=== PATIENT | female | born 1990 | race Caucasian/White ===

== ENCOUNTER 2018-11-13 07:47 | Inpatient (IN) ==
[2018-11-13] MEDS ORDERED: Piperacil/Tazo 4.5 GM Premix 4.5 GM/100 ML BAG IV.SIG STA (08:05)
[2018-11-13] MEDS ORDERED: Vancomycin Inj 1,000 MG in Sodium Chlor 0.9% Inj 250 ML IV.SIG STA (08:05)
[2018-11-13] MEDS ORDERED: Acetaminophen 325 MG Tablet PO ONE (08:05)
[2018-11-13] MEDS ORDERED: Sod Chloride 0.9% Inj 1,000 ML IV.SIG SCH ×2 (08:15)
[2018-11-13] MEDS ORDERED: Sod Chloride 0.9% Inj 400 ML IV.SIG SCH (08:15)
--- NOTE | 2018-11-13 08:22 | ED ---
HPI General Chief complaint: Chest Pain Stated complaint: chest pain Time Seen by Provider: 11/13/18 07:58 Source: patient, EMS and RN notes reviewed Mode of arrival: EMS History of Present Illness HPI narrative: 28yF presenting with fever, chest pain, cough, and nausea/ vomiting. The patient states "I think I have endocarditis again" and reports a 1 week history of fever up to 103F, productive cough, diffuse "sharp" chest pain , nausea and vomiting, diarrhea, and dysuria. No known recent sick contacts. History of "open heart surgery" without valve replacement in 2009 in [place], history of IVDA and hepatitis C (not currently receiving treatment). Denies sharing needles. Related Data Home Medications Medication Instructions Recorded Confirmed No Known Home Medications 11/13/18 11/13/18 Allergies Allergy/AdvReac Type Severity Reaction Status Date / Time No Known Allergies Allergy Verified 11/13/18 07:54 Review of Systems ROS: all other systems reviewed are negative Constitutional Reports fever(s) Eyes Denies blurry vision ENT Denies nasal congestion Cardiovascular Reports chest pain Respiratory Reports cough Gastrointestinal Reports diarrhea, Reports nausea and Reports vomiting Genitourinary Reports dysuria Musculoskeletal Reports back pain Integumentary/Breasts Denies rash Neurologic Denies confusion Psychiatric Denies confusion [facility] Medical History Medical History Endocarditis (Acute) Hepatitis C (Acute) IVDU (intravenous drug user) (Acute) Surgical History Surgical History Heart valve replaced (Acute) History of open heart surgery (Acute) Social History Social History Substance History: Active Abuse Second Hand Smoke Exposure: Yes Smoking Status: Current every day smoker Tobacco Type: Cigarettes How Often Do You Have a Drink Containing Alcohol: Monthly or less Recent Travel in [facility] within the Last 8 Weeks: No Recent Out of Country Travel within the Last 8 Weeks: No Substance Abuse Detail Heroin: Route Used Substance Abuse: Intravenously Immunization History Tetanus Immunization: Unsure Exam Const General: acute distress and ill appearing HENMT Face and sinus: normal facial exam Eyes General: appearance normal, both eyes and all related structures Resp Other: Coarse breath sounds, diminished at bases bilaterally, no wheezing Cardio Rate: tachycardic Rhythm: regular rhythm Heart Sounds: no murmurs GI Inspection: non-distended Palpation: soft and nontender Skin General: no rashes or lesions noted Neuro General: alert and awake Course Initial Documented Vital Signs Temperature 103.0 F H 11/13/18 07:57 Pulse Rate 105 H 11/13/18 07:57 Respiratory Rate 21 11/13/18 07:57 Blood Pressure 141/65 H 11/13/18 07:57 Pulse Oximetry 95 11/13/18 07:57 Last Documented Vital Signs Temperature 98.5 F 11/13/18 09:22 Pulse Rate 104 H 11/13/18 09:22 Respiratory Rate 16 11/13/18 09:41 Blood Pressure 114/67 11/13/18 09:22 Pulse Oximetry 96 11/13/18 09:22 Medical Decision Making MDM Narrative Medical decision making narrative: Assessment: 28yF presenting with fever and chest pain Plan: EKG and monitor Labs, mac-culture, flu swab CXR 30 cc/kg bolus Antipyretics Broad-spectrum antibiotics (vanc/zosyn) Will need admission for sepsis/ concern for recurrent endocarditis-- case discussed with Dr. Ferrari of [facility]. Medical Screen Exam Complete: Yes Emergency Medical Condition: Yes Differential Diagnosis Differential Diagnosis: Differential diagnosis includes, but is not limited to: SIRS/ sepsis/ severe sepsis, recurrent endocarditis, pneumonia, pericarditis, influenza, UTI/ pyelonephritis, bacteremia, lactic acidosis Lab Data Lab results reviewed: Yes I reviewed the patient's lab results. Result diagrams: 11/13/18 08:55 11/13/18 08:12 POC Results POC Urine Results Negative Lab Results 11/13/18 11/13/18 11/13/18 Range/Units 08:12 08:12 08:12 WBC (4.0-11.0) th/mm3 RBC (4.00-5.30) mil/mm3 Hgb (11.6-15.3) gm/dL Hct (35.0-46.0) % MCV (80.0-100.0) fL MCH (27.0-34.0) pg MCHC (32.0-36.0) % RDW (11.6-17.2) % Plt Count (150-450) th/mm3 MPV (7.0-11.0) fL Prelim Diff (Auto) Neut % (Auto) (16.0-70.0) % Lymph % (Auto) (9.0-44.0) % [place] % (Auto) (0.0-8.0) % Eos % (Auto) (0.0-4.0) % Baso % (Auto) (0.0-2.0) % Neut # (Auto) (1.8-7.7) th/mm3 Lymph # (Auto) (1.0-4.8) th/mm3 [place] # (Auto) (0.0-0.9) th/mm3 Eos # (Auto) (0.0-0.4) th/mm3 Baso # (Auto) (0.0-0.2) th/mm3 WBC Differential Seg Neuts % (Manual) (16-70) % Band Neuts % (Manual) (0-6) % Lymphocytes % (Manual) (9-44) % Monocytes % (Manual) (0-8) % Abs Neuts (Manual) (1.8-7.7) th/mm3 Differential Comment Toxic Vacuolation (None) Platelet Estimate (Normal) Platelet Morphology (Normal) PT 14.0 H (9.8-11.6) sec INR 1.4 Ratio APTT 32.4 H (23.4-31.7) sec Sodium 135 L (136-145) meq/L Potassium 3.6 (3.5-5.1) meq/L Chloride 103 (98-107) meq/L Carbon Dioxide 23.6 (21.0-32.0) meq/L Anion Gap 8 (5-15) meq/L BUN 14 (7-18) mg/dL Creatinine 0.69 (0.50-1.00) mg/dL Estimated GFR Greater than 89 (>89) mL/min Random Glucose 97 (74-106) mg/dL Lactic Acid 1.4 (0.4-2.0) mmol/L Calcium 8.0 L (8.5-10.1) mg/dL Phosphorus 0.7 L (2.5-4.9) mg/dL Magnesium 1.6 (1.5-2.5) mg/dL Total Bilirubin 1.1 H (0.2-1.0) mg/dL AST 49 H (15-37) U/L ALT 40 (10-53) U/L Alkaline Phosphatase 155 H (45-117) U/L Troponin I Less than 0.02 L (0.02-0.05) ng/mL B-Natriuretic Peptide (0-100) pg/mL Total Protein 7.6 (6.4-8.2) g/dL Albumin 3.1 L (3.4-5.0) g/dL Lipase 60 L (73-393) U/L Beta HCG, Quant Less than 1 (0-5) mIU/mL Urine Color (Yellw/Straw) Urine Clarity (Clear) Urine pH (5.0-8.5) Ur Specific [place] (1.002-1.035) Urine Protein (Neg-Trace) mg/dL Urine Glucose (UA) (Negative) mg/dL Urine Ketones (Negative) mg/dL Urine Occult Blood (Negative) Urine Nitrate (Negative) Urine Bilirubin (Negative) Urine Urobilinogen (Less than 2) mg/dL Ur Leukocyte Esterase (Negative) Urine RBC (0-3) /hpf Urine WBC (0-5) /hpf Ur Squamous Epith Cells (0-5) /hpf Micro UA Comment Ur Microscopic Review Urine Culture Comments 11/13/18 11/13/18 11/13/18 Range/Units 08:12 08:52 08:55 WBC 7.6 (4.0-11.0) th/mm3 RBC 3.99 L (4.00-5.30) mil/mm3 Hgb 11.9 (11.6-15.3) gm/dL Hct 36.1 (35.0-46.0) % MCV 90.5 (80.0-100.0) fL MCH 29.9 (27.0-34.0) pg MCHC 33.0 (32.0-36.0) % RDW 14.3 (11.6-17.2) % Plt Count 89 L (150-450) th/mm3 MPV 9.2 (7.0-11.0) fL Prelim Diff (Auto) Slide review pending Neut % (Auto) 89.1 H (16.0-70.0) % Lymph % (Auto) 5.3 L (9.0-44.0) % [place] % (Auto) 4.1 (0.0-8.0) % Eos % (Auto) 1.1 (0.0-4.0) % Baso % (Auto) 0.4 (0.0-2.0) % Neut # (Auto) 6.8 (1.8-7.7) th/mm3 Lymph # (Auto) 0.4 L (1.0-4.8) th/mm3 [place] # (Auto) 0.3 (0.0-0.9) th/mm3 Eos # (Auto) 0.1 (0.0-0.4) th/mm3 Baso # (Auto) 0.0 (0.0-0.2) th/mm3 WBC Differential Manual diff final Seg Neuts % (Manual) 63 (16-70) % Band Neuts % (Manual) 30 H (0-6) % Lymphocytes % (Manual) 4 L (9-44) % Monocytes % (Manual) 3 (0-8) % Abs Neuts (Manual) 7.1 (1.8-7.7) th/mm3 Differential Comment . Toxic Vacuolation Present H (None) Platelet Estimate Low L (Normal) Platelet Morphology Normal (Normal) PT (9.8-11.6) sec INR Ratio APTT (23.4-31.7) sec Sodium (136-145) meq/L Potassium (3.5-5.1) meq/L Chloride (98-107) meq/L Carbon Dioxide (21.0-32.0) meq/L Anion Gap (5-15) meq/L BUN (7-18) mg/dL Creatinine (0.50-1.00) mg/dL Estimated GFR (>89) mL/min Random Glucose (74-106) mg/dL Lactic Acid (0.4-2.0) mmol/L Calcium (8.5-10.1) mg/dL Phosphorus (2.5-4.9) mg/dL Magnesium (1.5-2.5) mg/dL Total Bilirubin (0.2-1.0) mg/dL AST (15-37) U/L ALT (10-53) U/L Alkaline Phosphatase (45-117) U/L Troponin I (0.02-0.05) ng/mL B-Natriuretic Peptide 88 (0-100) pg/mL Total Protein (6.4-8.2) g/dL Albumin (3.4-5.0) g/dL Lipase (73-393) U/L Beta HCG, Quant (0-5) mIU/mL Urine Color Janice (Yellw/Straw) Urine Clarity Clear (Clear) Urine pH 6.0 (5.0-8.5) Ur Specific [place] 1.025 (1.002-1.035) Urine Protein 30 H (Neg-Trace) mg/dL Urine Glucose (UA) Negative (Negative) mg/dL Urine Ketones Negative (Negative) mg/dL Urine Occult Blood Negative (Negative) Urine Nitrate Negative (Negative) Urine Bilirubin Negative (Negative) Urine Urobilinogen 4 or greater (Less than 2) mg/dL Ur Leukocyte Esterase Negative (Negative) Urine RBC Less than 1 (0-3) /hpf Urine WBC 1 (0-5) /hpf Ur Squamous Epith Cells 3 (0-5) /hpf Micro UA Comment Culture not ind Ur Microscopic Review Not Reportable Urine Culture Comments Culture not ind Imaging Data Radiologist's impression: Chest X-Ray 11/13/18 08:05 CONCLUSION: Underinflation with mild opacity at the right lung base representing either atelectasis or airspace consolidation. Otherwise, no acute finding is identified. Discharge Plan Discharge Disposition Patient Disposition: ED Admit(ED Internal Use Only) Discharge Condition Condition: Stable Discharge Order Discharge Orders: ED Use Only Admit Order (Routine); Ordered 11/13/18 Ordered By: Simran Snell Discharge Details Diagnosis: Sepsis, Bandemia Physicians Team ED Provider: Simran Snell Primary Care Provider: Primary Care Physici,Joya Attending Provider: Arti Ferrari Discharge Interventions Interventions: Vital Signs Last Done: 11/13/18 09:22 Status ED Status: Admitted Patient
[2018-11-13 08:38] LABS: Activated Partial Thrombo Time 32.4 sec (23.4-31.7); INR 1.4 Ratio
--- NOTE | 2018-11-13 08:44 | XR ---
EXAM DATE: 11/13/2018 8:30 AM EST AGE/SEX: 28 years / Female INDICATIONS: Patient presents with chest pain and history of heart surgery, history of IVDU. CLINICAL DATA: This is the patient's initial encounter. Patient reports that signs and symptoms have been present for 2 days and indicates a pain score of 9/10. MEDICAL/SURGICAL HISTORY: . Endocarditis . heart surgery for endocarditis COMPARISON: No prior exams available for comparison. FINDINGS: Portable AP view of the chest demonstrates a normal-sized cardiac silhouette post median sternotomy. EKG lines overlie the patient. There is mild opacity at the right lung base. No pleural effusion or p neumothorax is identified. The bones and soft tissues demonstrate no acute finding. There is dextrosc oliosis of the thoracic spine. CONCLUSION: Underinflation with mild opacity at the right lung base representing either atelectasis or airspace c onsolidation. Otherwise, no acute finding is identified. Electronically signed by: Brennen Huber MD Board Certified Radiologist 11/13/2018 8:42 AM EST
[2018-11-13 08:50] LABS: Alanine Aminotransferase 40 U/L (10-53); Albumin 3.1 g/dL (3.4-5.0); Anion Gap 8 meq/L (5-15); Aspartate Aminotransferase 49 U/L (15-37); Blood Urea Nitrogen 14 mg/dL (7-18); Carbon Dioxide 23.6 meq/L (21.0-32.0); Chloride 103 meq/L (98-107); Glomerular Filtration Rate Greater Than 89 mL/min (>89); Magnesium 1.6 mg/dL (1.5-2.5); Phosphorus 0.7 mg/dL (2.5-4.9); Sodium 135 meq/L (136-145)
[2018-11-13 08:55] LABS: Alkaline Phosphatase 155 U/L (45-117); Total Protein 7.6 g/dL (6.4-8.2)
[2018-11-13 09:09] LABS: Baso % (Auto) 0.4 % (0.0-2.0); Eos # (Auto) 0.1 th/mm3 (0.0-0.4); Eos % (Auto) 1.1 % (0.0-4.0); Hematocrit 36.1 % (35.0-46.0); Hemoglobin 11.9 gm/dL (11.6-15.3); Lymph # (Auto) 0.4 th/mm3 (1.0-4.8); Lymph % (Auto) 5.3 % (9.0-44.0); Mean Corpuscular Hemoglobin 29.9 pg (27.0-34.0); Mean Corpuscular Volume 90.5 fL (80.0-100.0); Mean Platelet Volume 9.2 fL (7.0-11.0); Mono # (Auto) 0.3 th/mm3 (0.0-0.9); Mono % (Auto) 4.1 % (0.0-8.0); Neut # (Auto) 6.8 th/mm3 (1.8-7.7); Neut % (Auto) 89.1 % (16.0-70.0); Platelet Count 89 th/mm3 (150-450); Red Blood Count 3.99 mil/mm3 (4.00-5.30); Red Cell Distribution Width 14.3 % (11.6-17.2); White Blood Count 7.6 th/mm3 (4.0-11.0)
[2018-11-13 09:11] LABS: Bilirubin,Urine Negative (Negative); Clarity,Urine Clear (Clear); Color,Urine Amber (Yellw/Straw); Glucose,Urine (UA) Negative (Negative); Leukocyte Esterase,Urine Negative (Negative); Nitrite,Urine Negative (Negative); Specific Gravity,Urine 1.025 (1.002-1.035); Squamous Epithelial Cell,Urine 3 /hpf (0-5); Urobilinogen,Urine 4 or Greater mg/dL (Less than 2)
[2018-11-13] MEDS ORDERED: Morphine Inj 4 MG/ML Vial IV.PUSH ONE (09:14)
[2018-11-13 09:52] LABS: Lymphocytes 4 % (9-44); Monocytes 3 % (0-8)
[2018-11-13 09:53] LABS: Toxic Vacuolation Present
[2018-11-13 09:54] LABS: Platelet Morphology Normal (Normal)
[2018-11-13] MEDS ORDERED: Acetaminophen 325 MG Tablet PO PRN (10:07)
[2018-11-13] MEDS ORDERED: Bisacodyl 10 MG Supp RECTAL PRN (10:07)
[2018-11-13 10:16] LABS: Potassium 3.6 meq/L (3.5-5.1)
[2018-11-13 10:18] LABS: Glucose,Random 97 mg/dL (74-106)
[2018-11-13 10:19] LABS: Lipase 60 U/L (73-393)
[2018-11-13] MEDS ORDERED: Potassium Phosphate Inj 15 MMOL in Sodium Chlor 0.9% Inj 150 ML IV.SIG ONE (10:24)
[2018-11-13] MEDS: Sod Chloride 0.9% Inj 1,000 ML IV.CONT SCH ×3 (10:46→23:04)
[2018-11-13] MEDS: Enoxaparin Inj 40 MG/0.4 ML Syringe SQ SCH (12:12)
--- NOTE | 2018-11-13 12:16 | ECG ---
Date Performed: 11/13/2018 Time Performed: 07:57:53 PTAGE: 28 years EKG: SINUS TACHYCARDIA WITH SHORT [place] INTERVAL RIGHT BUNDLE BRANCH BLOCK LEFT POSTERIOR FASCICULA R BLOCK MODERATE T-WAVE ABNORMALITY, CONSIDER LATERAL ISCHEMIA ABNORMAL ECG NO PREVIOUS TRACING DOCTOR: Abi Bell Interpretating Date/Time 11/13/2018 12:12:33
[2018-11-13] MEDS ORDERED: Vancomycin Consult Pharmacy OTHER PRN (14:06)
--- NOTE | 2018-11-13 14:07 | P.HPIM ---
History of Present Illness Service: Hospitalist Primary Care Physician: No Primary Care Physician Chief Complaint: Chest pain, shortness of breath, fever and chills. History of Present Illness: Ms. Valdez is a 28-year-old female with a history of IV drug use as well as endocarditis status post surgery in 2009 who presents to the emergency department on 11/13/2018 due to a week-long chest discomfort, shortness of breath, nausea and vomiting. Her last IV drug use was yesterday 11/12/2018. She usually does IV heroin. She does not use any other illicit drugs. She was concerned that her symptoms again indicate possible endocarditis and thus she came to the hospital. Patient denies any abdominal pain, changes in bowel or bladder habits. On arrival, temperature 103 F, respiration 21, pulse oximetry 95% on room air, blood pressure 141/65. Patient was given vancomycin and Zosyn. Past medical history: IV drug use, endocarditis in 2009 Past surgical history: Open heart surgery for endocarditis. Patient reports no valve replacement. Social history: Patient smokes about 1 pack a day. She uses IV heroine. Does not use any other illicit drugs. Does not drink. Family history: No family history of heart disease, cancer. Inpatient Certification Inpatient Certification: I certify that the inpatient services were ordered in accordance with Medicare regulations governing the order. This includes certification that hospital inpatient services are reasonable and necessary and in the case of services not specified as inpatient-only under 42 CFR 419.22(n), that they are appropriately provided as inpatient services in accordance to with the 2-midnight benchmark under 43 CFR 412.3(e) Estimated Total Length of Stay (Days): 3 Plans for Post Hospital Care: Home Review of Systems Review of Systems: all other systems reviewed are negative [facility] Medical History Medical History Endocarditis (Acute) Hepatitis C (Acute) IVDU (intravenous drug user) (Acute) Surgical History Surgical History Heart valve replaced (Acute) History of open heart surgery (Acute) Social History Social History Substance History: Active Abuse Second Hand Smoke Exposure: Yes Smoking Status: Current every day smoker Tobacco Type: Cigarettes How Often Do You Have a Drink Containing Alcohol: Monthly or less Recent Travel in [facility] within the Last 8 Weeks: No Recent Out of Country Travel within the Last 8 Weeks: No Substance Abuse Detail Heroin: Route Used Substance Abuse: Intravenously Immunization History Tetanus Immunization: Unsure Medications and Allergies Allergies Allergy/AdvReac Type Severity Reaction Status Date / Time No Known Allergies Allergy Verified 11/13/18 07:54 Home Medications Medication Instructions Recorded Confirmed Type No Known Home Medications 11/13/18 11/13/18 History Active Medications: Active Medications Acetaminophen (Tylenol) 650 mg PO Q4H PRN PRN Reason: Headache, fever, pain 1-4 Al Hydroxide/Mg Hydroxide (Milk Of Magnesia Liq) 30 ml PO Q12H PRN PRN Reason: Mild Constipation Bisacodyl (Dulcolax Supp) 10 mg RECTAL DAILY PRN PRN Reason: SEVERE CONSITIPATION Enoxaparin Sodium (Lovenox Inj) 40 mg SQ Q24H [facility] Last Admin: 11/13/18 12:12 Dose: Not Given Sodium Chloride (Ns Inj) 1,000 mls @ 100 mls/hr IV.CONT .Q10H [facility] Stop: 11/14/18 10:59 Last Admin: 11/13/18 10:46 Dose: 100 mls/hr Potassium Phosphate 15 mmol/ (Sodium Chloride) 155 mls @ 38.75 mls/hr IV.SIG ONCE ONE Stop: 11/13/18 14:23 Last Admin: 11/13/18 11:25 Dose: 38.75 mls/hr Lactulose (Lactulose Liq) 30 ml PO DAILY PRN PRN Reason: SEVERE CONSITIPATION Ondansetron HCl (Zofran Inj) 4 mg IV.PUSH Q6H PRN PRN Reason: NAUSEA OR VOMITING Sennosides (Senokot) 17.2 mg PO Q12H PRN PRN Reason: Moderate Constipation Sodium Chloride (Ns Flush) 2 ml IV.FLUSH BID HOMERO Sodium Chloride (Ns Flush) 2 ml IV.FLUSH UNSCH PRN PRN Reason: FLUSH AFTER USING IV ACCESS Physical Exam Vital signs: Last Vital Signs Temp 98.5 F 11/13/18 09:22 Pulse 83 11/13/18 11:28 Resp 18 11/13/18 11:28 BP 124/61 11/13/18 11:28 Pulse Ox 98 11/13/18 11:28 Intake & Output 11/11/18 11/12/18 11/13/18 11/14/18 06:59 06:59 06:59 06:59 Intake Total 2750 / 2750 Balance 2750 / 2750 Weight 73.028 kg Narrative: GENERAL: This is a well-nourished, well-developed patient, in no apparent distress. Somewhat disheveled appearance. SKIN: No rashes, ecchymoses or lesions. Warm and dry. Right arm above the antecubital fossa, there is one IV drug injection site. HEAD: Atraumatic. Normocephalic. No temporal or scalp tenderness. EYES: Pupils equal round and reactive. No injection or drainage. ENT: Nose without bleeding, purulent drainage or septal hematoma. Airway patent. NECK: Trachea midline. No lymphadenopathy. Supple, nontender, no meningeal signs. CARDIOVASCULAR: Regular rate and rhythm without murmurs, gallops, or rubs. No JVD. RESPIRATORY: Clear to auscultation. Breath sounds equal bilaterally. No wheezes , rales, or rhonchi. GASTROINTESTINAL: Abdomen soft, non-tender, nondistended. No guarding. MUSCULOSKELETAL: Extremities without clubbing, cyanosis, or edema. NEUROLOGICAL: Awake and alert. Cranial nerves II through XII intact. No focal neurological deficits. Normal speech. Results Labs CBC & Chem 7: 11/13/18 08:55 11/13/18 08:12 Imaging Impressions Chest X-Ray 11/13/18 08:05 CONCLUSION: Underinflation with mild opacity at the right lung base representing either atelectasis or airspace consolidation. Otherwise, no acute finding is identified. Caprini VTE Risk Assessment Caprini VTE Risk Assessment: Moderate/High Risk (score >= 2) Caprini Risk Assessment Model: Point Value = 1 Point Value = 2 Point Value = 3 Point Value = 5 Age 41-60 Minor surgery BMI > 25 kg/m2 Swollen legs Varicose veins or History of unexplained or recurrent spontaneous Oral contraceptives or hormone replacement Sepsis (< 1 month) Serious lung disease, including pneumonia (< 1 month) Abnormal pulmonary function Acute myocardial infarction Congestive heart failure (< 1 month) History of inflammatory bowel disease Medical patient at bed rest Age 61-74 Arthroscopic surgery Major open surgery (> 45 min) Laparoscopic surgery (> 45 min) Malignancy Confined to bed (> 72 hours) Immobilizing plaster cast Central venous access Age >= 75 History of VTE Family history of VTE Factor V Leiden Prothrombin [id number] Lupus anticoagulant Anticardiolipin antibodies Elevated serum homocysteine Heparin-induced thrombocytopenia Other congenital or acquired thrombophilia Stroke (< 1 month) Elective arthroplasty Hip, pelvis, or leg fracture Acute spinal cord injury (< 1 month) Prophylaxis Regimen: Total Risk Factor Score Risk Level Prophylaxis Regimen 0-1 Low Early ambulation 2 Moderate Order ONE of the following: *Sequential Compression Device (SCD) *Heparin 5000 units SQ BID 3-4 Higher Order ONE of the following medications: *Heparin 5000 units SQ TID *Enoxaparin/Lovenox 40 mg SQ daily (WT < 150 kg, CrCl > 30 mL/min) *Enoxaparin/Lovenox 30 mg SQ daily (WT < 150 kg, CrCl > 10-29 mL/min) *Enoxaparin/Lovenox 30 mg SQ BID (WT < 150 kg, CrCl > 30 mL/min) AND/OR *Sequential Compression Device (SCD) 5 or more Highest Order ONE of the following medications: *Heparin 5000 units SQ TID (Preferred with Epidurals) *Enoxaparin/Lovenox 40 mg SQ daily (WT < 150 kg, CrCl > 30 mL/min) *Enoxaparin/Lovenox 30 mg SQ daily (WT < 150 kg, CrCl > 10-29 mL/min) *Enoxaparin/Lovenox 30 mg SQ BID (WT < 150 kg, CrCl > 30 mL/min) AND *Sequential Compression Device (SCD) Assessment and Plan Plan Ms. Valdez is a 28-year-old female with a history of endocarditis, IV drug abuse who presents to the emergency department on 11/13/2018 due to a week- long chest discomfort, nausea vomiting, shortness of breath. She was concerned about recurrence of endocarditis which is why she presented to the emergency department. On arrival, temperature 103 F, respiration 21, pulse oximetry 95% on room air, blood pressure 141/65. Patient was given vancomycin and Zosyn. Sepsis (respiration 21, fever 103 F, suspected infection IV drug use related possibly endocarditis) Possible endocarditis Patient's symptoms of shortness of breath, chest discomfort as well as high- grade fever 103 F are concerning for endocarditis. Blood cultures pending We will obtain a transthoracic echocardiogram. TTE could be considered if suspicion remains high and/or if blood cultures are positive. Continue vancomycin as empiric therapy for now. Dosing per pharmacy. Depending on echo findings as well as blood culture findings, will consider infectious disease consultation. IV drug abuse Tobacco abuse Patient counseled. Patient continues to use IV heroin daily despite having endocarditis in 2009. Full code. Lovenox.
[2018-11-13] MEDS: Loperamide 2 MG Capsule PO PRN (16:28)
[2018-11-13] MEDS: Vancomycin Inj 1,500 MG in Sodium Chlor 0.9% Inj 500 ML IV.SIG SCH (17:18)
[2018-11-13] MEDS ORDERED: Methadone Inj 10 MG/ML Vial IM ONE (17:43)
[2018-11-13] MEDS ORDERED: Methadone 10 MG Tablet PO ONE (19:45)
[2018-11-14] MEDS: Sod Chloride 0.9% Inj 1,000 ML IV.CONT SCH ×2 (05:01→07:50)
[2018-11-14] MEDS: Vancomycin Inj 1,500 MG in Sodium Chlor 0.9% Inj 500 ML IV.SIG SCH ×2 (05:01→18:20)
--- NOTE | 2018-11-14 08:27 | ECHRPT ---
Indication: Sepsis Possible endocarditis CONCLUSIONS Normal left ventricular size. Mild concentric left ventricular hypertrophy. The right ventricle is severely dilated. The right atrial size is severely dilated. There is severe tricuspid regurgitation. Normal left ventricular size. Mild concentric left ventricular hypertrophy. The left ventricular systolic function is normal with an estimated ejection fraction in the range of 55-60%. The right ventricle is severely dilated. The right atrial size is severely dilated. BP: / HR: Rhythm: MEASUREMENTS (Male / Female) Normal Values Technical Quality: 2D ECHO LV Diastolic Diameter PLAX 4.3 cm 4.2 - 5.9 / 3.9 - 5.3 cm LV Systolic Diameter PLAX 3.0 cm IVS Diastolic Thickness 1.3 cm 0.6 - 1.0 / 0.6 - 0.9 cm LVPW Diastolic Thickness 1.3 cm 0.6 - 1.0 / 0.6 - 0.9 cm LV Relative Wall Thickness 0.6 RV Internal Dim ED PLAX 4.3 cm LVOT Diameter 1.9 cm Aortic Root Diameter 2.3 cm LA Systolic Diameter LX 3.2 cm 3.0 - 4.0 / 2.7 - 3.8 cm M-MODE Aortic Root Diameter MM 3.2 cm LA Systolic Diameter MM 4.7 cm LA Ao Ratio MM 1.5 AV Cusp Separation MM 1.8 cm DOPPLER AV Peak Velocity 128.0 cm/s AV Peak Gradient 6.6 mmHg LVOT Peak Velocity 110.0 cm/s LVOT Peak Gradient 4.8 mmHg AV Area Cont Eq pk 2.4 cm Mitral E Point Velocity 94.8 cm/s Mitral A Point Velocity 60.7 cm/s Mitral E to A Ratio 1.6 LV E' Lateral Velocity 16.8 cm/s Mitral E to LV E' Lateral Ratio 5.6 LV E' Septal Velocity 9.6 cm/s Mitral E to LV E' Septal Ratio 9.9 TR Peak Velocity 220.0 cm/s TR Peak Gradient 19.4 mmHg Right Atrial Pressure 10.0 mmHg Pulmonary Artery Systolic Pressu 29.4 mmHg Right Ventricular Systolic Press 29.4 mmHg PV Peak Velocity 99.1 cm/s PV Peak Gradient 3.9 mmHg FINDINGS LEFT VENTRICLE Normal left ventricular size. Mild concentric left ventricular hypertrophy. The left ventricular systolic function is normal with an estimated ejection fraction in the range of 55-60%. RIGHT VENTRICLE The right ventricle is severely dilated. LEFT ATRIUM The left atrial size is normal. RIGHT ATRIUM The right atrial size is severely dilated. ATRIAL SEPTUM Normal atrial septal thickness without atrial level shunting by limited color doppler interrogation. AORTA The aortic root and proximal ascending aorta are normal in size on limited imaging. MITRAL VALVE Structurally normal mitral valve. No mitral valve stenosis or regurgitation. AORTIC VALVE Trileaflet aortic valve. No aortic valve stenosis or regurgitation. TRICUSPID VALVE There is severe tricuspid regurgitation. The estimated pulmonary arterial pressure is 29.4 mmHg. PULMONARY VALVE No pulmonary valve regurgitation or stenosis. VESSELS The inferior vena cava is normal in size. PERICARDIUM No pericardial effusion. Sam Patel MD, FACC (Electronically Signed) Final Date:14 November 2018 08:27
[2018-11-14] MEDS: Enoxaparin Inj 40 MG/0.4 ML Syringe SQ SCH (10:18)
[2018-11-14] MEDS: Loperamide 2 MG Capsule PO PRN (10:18)
--- NOTE | 2018-11-14 10:50 | P.PNIM ---
Subjective Interval history: Patient denied subjective fever or chills today no chest pain endorsed no sob or cp + fatigue and wants to sleep was started back on methadone on 11/13. Nurse says patient been more calm since getting her medications Physical Exam Vital signs: Last Vital Signs Temp 97.5 F L 11/14/18 08:00 Pulse 52 L 11/14/18 08:00 Resp 20 11/14/18 08:00 BP 103/56 L 11/14/18 08:00 Pulse Ox 97 11/14/18 08:00 Intake & Output 11/12/18 11/13/18 11/14/18 11/15/18 06:59 06:59 06:59 06:59 Intake Total 5660 / 5660 515 / 515 Balance 5660 / 5660 515 / 515 Weight 76.8 kg Narrative: GENERAL: This is a well-nourished, well-developed patient, in no apparent distress. . SKIN: No rashes, ecchymoses or lesions. Warm and dry. HEAD: Atraumatic. Normocephalic. No temporal or scalp tenderness. EYES: Pupils equal round and reactive. No injection or drainage. ENT: Nose without bleeding, purulent drainage or septal hematoma. Airway patent. NECK: Trachea midline. No lymphadenopathy. Supple, nontender, no meningeal signs. CARDIOVASCULAR: Regular rate and rhythm without murmurs, gallops, or rubs. No JVD. Skin: No splinter hemorrhages RESPIRATORY: Clear to auscultation. Breath sounds equal bilaterally. No wheezes , rales, or rhonchi. GASTROINTESTINAL: Abdomen soft, non-tender, nondistended. No guarding. MUSCULOSKELETAL: Extremities without clubbing, cyanosis, or edema. NEUROLOGICAL: Awake and alert. Cranial nerves II through XII intact. No focal neurological deficits. Normal speech. Results Labs CBC & Chem 7: 11/14/18 12:59 11/14/18 12:59 Labs: Microbiology 11/13/18 08:12 Blood - Peripheral Aerobic Blood Culture - Preliminary gram negative rods 11/13/18 08:12 Blood - Peripheral Anaerobic Blood Culture - Preliminary gram negative rods gram positive cocci 11/13/18 08:12 Blood - Peripheral Anaerobic Blood Culture - Preliminary gram negative rods 11/13/18 08:57 Nasal Wash Influenza Types A,B Antigen - Final Negative for FLU A and B antigen Infection due to influenza A or B cannot be ruled out since the antigen present in the sample may be below the detection limit of the test. Assessment and Plan Plan Patient is a pleasant 28-year-old female past medical history of drug abuse who presents with fever shortness of breath admitted for further workup found to have blood cultures positive for gram-negative rods and gram-positive cocci. Infectious disease: Suspected endocarditis - Infectious disease has not been a part of case but will consult them now and repeat a full set of blood cultures with fresh peripheral sticks. We will need to expand antibiotic coverage. Echo was negative for vegetation but may consider CAROLIN given history of intravenous drug abuse and extensive bacteremia with gram-positive and gram negatives. Source unclear to me at this time. Official blood culture from 11/13 pending Repeat blood culture immediately Consult cardiology for consideration of possible transesophageal echo CAROLIN - CAROLIN ordered. unlikely to occur over weekend, may need npo on saturday night - ESR/CRP for am - abx: vanco/ceftriaxone Psychiatry: Drug abuse Counseled patient on importance of substance abuse abstinence. code:fc dvt ppx dispo: med/surg Progress Note: Quality VTE Deep Vein Thrombosis/Pulmonary Embolism Present on Admission: No
[2018-11-14 13:42] LABS: Baso % (Auto) 0.5 % (0.0-2.0); Eos # (Auto) 0.2 th/mm3 (0.0-0.4); Eos % (Auto) 3.4 % (0.0-4.0); Hematocrit 35.1 % (35.0-46.0); Hemoglobin 11.7 gm/dL (11.6-15.3); Mean Corpuscular HGB Conc 33.3 % (32.0-36.0); Mean Corpuscular Hemoglobin 29.7 pg (27.0-34.0); Mean Corpuscular Volume 89.3 fL (80.0-100.0); Mean Platelet Volume 10.6 fL (7.0-11.0); Mono # (Auto) 0.6 th/mm3 (0.0-0.9); Mono % (Auto) 10.4 % (0.0-8.0); Neut # (Auto) 4.1 th/mm3 (1.8-7.7); Neut % (Auto) 68.7 % (16.0-70.0); Platelet Count 99 th/mm3 (150-450); Red Blood Count 3.93 mil/mm3 (4.00-5.30); Red Cell Distribution Width 14.4 % (11.6-17.2)
[2018-11-14 14:07] LABS: Anion Gap 8 meq/L (5-15); Blood Urea Nitrogen 9 mg/dL (7-18); Calcium 7.9 mg/dL (8.5-10.1); Carbon Dioxide 22.5 meq/L (21.0-32.0); Chloride 113 meq/L (98-107); Glomerular Filtration Rate Greater Than 89 mL/min (>89); Glucose,Random 91 mg/dL (74-106); Potassium 3.3 meq/L (3.5-5.1); Sodium 143 meq/L (136-145)
[2018-11-14 14:26] LABS: Eosinophils 5 % (0-4); Lymphocytes 11 % (9-44); Ovalocytes 1+
--- NOTE | 2018-11-14 16:40 | MB ---
cc: Les Garcia MD DATE: 11/14/2018 REQUESTING PHYSICIAN: Dr. Alli Schumacher. REASON: Bacteremia. History of IV drug abuse, with fever. Gram-negative honey positive blood cult. HISTORY OF PRESENT ILLNESS: This is a 28-year-old white female who has history of IV drugs and has been using IV heroin lately. The patient presented to the emergency department yesterday morning with chest pain. It is reported in the emergency room record that she mentioned, "I think I have endocarditis again." She has had a 1-week history of fever, productive cough, nausea, vomiting, diarrhea, and chest pain. She reports having had endocarditis back in [place] in 2009 and she mentioned that they "cleaned out her tricuspid valve". She states that was clean of drugs for 6 years and then started using IV drugs again 6 months ago. She states that she has achiness all over. Blood cultures on admission had gram-negative honey in all 4 bottles. One bottle has gram-positive cocci. Influenza test is negative. The patient had temperature of 103 on admission. Her white count is normal; but the differential reveals 24% bands. She is asking for pain medication. TECHNIQUE: A 2-D echocardiogram shows severe tricuspid regurgitation. No vegetations seen. CAROLIN has been ordered. PAST MEDICAL HISTORY: IV drug use in the form of heroin, hepatitis C, history of endocarditis in 2009, mitral valve repair in 2009. ALLERGIES: NO KNOWN DRUG ALLERGIES. MEDICATIONS: 1. Vancomycin. 2. Ceftriaxone. 3. Tramadol. 4. Imodium. SOCIAL HISTORY: Positive tobacco, positive alcohol. Positive IV drug use. FAMILY HISTORY: Noncontributory. REVIEW OF SYSTEMS: All systems have been reviewed and are negative except for features mentioned in the history of present illness. PHYSICAL EXAMINATION: GENERAL: This is a well-developed female in no acute distress. She appears chronically ill. VITAL SIGNS: Temperature 97.9, BP 110/57, respirations 20, heart rate 78. HEENT: Head is atraumatic. Extraocular movements are grossly intact. Pupils reactive to light. No icterus. Oropharynx without lesions. NECK: Supple without adenopathy. LUNGS: Decreased clear breath sounds. HEART: Regular S1, S2. Slight systolic murmur at the left sternal border. ABDOMEN: Bowel sounds present. Soft, no tenderness appreciated. EXTREMITIES: No clubbing, cyanosis or edema. Tract brizuela are apparent at the right forearm. NEUROLOGIC: No gross focal findings. PSYCHIATRIC: Patient is calm and cooperative. LABORATORY DATA: WBC 6, platelet count 99,000. Hemoglobin 11.7, creatinine 0.53. Estimated GFR greater than 89, sodium 143, AST 49, ALT 40. IMPRESSION: 1. Gram-negative bacteremia. Probable endocarditis in a patient with IV drug abuse. 2. Fever secondary to bacteremia. RECOMMENDATIONS: 1. Discontinue ceftriaxone. 2. Begin cefepime IV high dose. 3. Continue vancomycin while monitoring blood cultures. 4. Monitor the identity and sensitivity of the bacteria in the blood. 5. Monitor temperature. 6. Monitor clinical status. Thank you for this consultation. The patient's progress will be monitored and further recommendations will be given upon followup. MD JONES Kelly/janki , 04:12 PM , 04:23 PM
--- NOTE | 2018-11-14 20:54 | MB ---
cc: Lee Bustamante MD DATE: 11/14/2018 REASON FOR CONSULTATION: Transesophageal echocardiography, possible endocarditis. 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 For the past several days, she has had fairly severe nausea and shaking chills. In addition, she reports a substernal and left-sided sharp chest discomfort which has been present most of the day for the past few days. She denies syncope or near-syncope, but has felt moderately lightheaded. She also denies pedal edema, new rashes, paroxysmal nocturnal dyspnea, orthopnea, abdominal bloating. PAST MEDICAL HISTORY: 1. Tricuspid valve endocarditis in 2009 necessitating valve surgery, possibly a repair of the tricuspid valve. 2. Hepatitis C. HOME MEDICATIONS: None. ALLERGIES: NO KNOWN DRUG ALLERGIES. FAMILY HISTORY: Noncontributory. SOCIAL HISTORY: The patient abuses heroin. She smokes about a pack of cigarettes per day. She denies alcohol abuse. REVIEW OF SYSTEMS: As in the history of present illness, otherwise negative or noncontributory. She also denies abdominal pain, melena, bright red blood per rectum, headache. PHYSICAL EXAMINATION: VITAL SIGNS: Her blood pressure is 120/74 with a pulse of 59, respirations 20. GENERAL: She is a well-developed, well-nourished white female, in no acute distress. NECK: Jugular venous pressure is 8 cm of water. Carotid pulses are 2+ bilaterally and without bruits. CHEST: Reveals clear lungs cel[place]. CARDIAC: She has a regular rhythm and rate with a grade 1/6 systolic murmur heard along the left sternal border. No gallop is audible. ABDOMEN: She has a soft, obese, nontender abdomen. Bowel sounds are present. There is no definite hepatosplenomegaly. EXTREMITIES: Reveals no clubbing, cyanosis or edema. LABORATORY DATA: EKG shows sinus tachycardia, right bundle branch block, left posterior fascicular block, anterolateral ST and T-wave changes, consider ischemia. Chest x-ray shows no acute disease. LABORATORY DATA: Includes WBC 6.0, hemoglobin 11.7, platelets 99. INR 1.4. Potassium 3.3, BUN 9, creatinine 0.53. IMPRESSION: Probable recurrent endocarditis in this 28-year-old white female with a history of tricuspid valve endocarditis necessitating valve surgery in 2009, hepatitis C. Her echocardiogram has been reviewed. There is indeed severe tricuspid regurgitation associated with severely dilated right ventricle and right atrium. One view also suggests vegetation on the ventricular surface of one of the tricuspid leaflets, although this is difficult to confirm. Blood cultures are also positive for gram-negative rods and gram-positive cocci. At this point, it would agree with the need for transesophageal echocardiography. The nature of this procedure and potential risks have been outlined to the patient. She agrees to proceed. RECOMMENDATIONS: 1. Transesophageal echocardiography this coming Saturday. 2. We will follow up as needed over the weekend. Lee Bustamante MD GHNanci/ll , 08:10 PM , 08:18 PM MTDBam
[2018-11-14] MEDS ORDERED: Methadone 10 MG Tablet PO ONE (22:54)
[2018-11-15] MEDS: Vancomycin Inj 1,500 MG in Sodium Chlor 0.9% Inj 500 ML IV.SIG SCH ×2 (05:09→18:33)
[2018-11-15] MEDS ORDERED: Pharmacy Ordered Lab Info OTHER ONE (05:45)
[2018-11-15 06:27] LABS: Anion Gap 8 meq/L (5-15); Blood Urea Nitrogen 9 mg/dL (7-18); C-Reactive Protein 3.41 mg/dL (0.00-0.30); Calcium 6.7 mg/dL (8.5-10.1); Carbon Dioxide 20.7 meq/L (21.0-32.0); Chloride 118 meq/L (98-107); Glomerular Filtration Rate Greater Than 89 mL/min (>89); Glucose,Random 75 mg/dL (74-106); Magnesium 1.7 mg/dL (1.5-2.5); Sodium 147 meq/L (136-145)
[2018-11-15 06:38] LABS: Albumin 2.3 g/dL (3.4-5.0); Calcium-Albumin Corrected 8.1 mg/dL (8.5-10.1)
[2018-11-15 10:22] LABS: Hematocrit 35.6 % (35.0-46.0); Mean Corpuscular HGB Conc 33.6 % (32.0-36.0); Mean Corpuscular Hemoglobin 30.1 pg (27.0-34.0); Mean Corpuscular Volume 89.5 fL (80.0-100.0); Mean Platelet Volume 10.1 fL (7.0-11.0); Platelet Count 121 th/mm3 (150-450); Red Blood Count 3.98 mil/mm3 (4.00-5.30); Red Cell Distribution Width 14.3 % (11.6-17.2); White Blood Count 6.2 th/mm3 (4.0-11.0)
[2018-11-15] MEDS: Enoxaparin Inj 40 MG/0.4 ML Syringe SQ SCH (10:27)
[2018-11-15] MEDS: Loperamide 2 MG Capsule PO PRN (10:27)
[2018-11-15 10:54] LABS: Erythrocyte Sedimentation Rate 30 mm/hr (0-20)
--- NOTE | 2018-11-15 13:31 | P.PNIM ---
Subjective Interval history: Patient reports that the patient is saying that the tramadol is not helping at all. I talked to the patient about doubling the tramadol dose, she says tramadol does not help at all, only causes her some tingling in her legs. She thinks she's withdrawing from opiates, reports diarrhea. Physical Exam Vital signs: Vital Signs 11/14/18 16:00 11/14/18 20:00 11/15/18 00:00 Temperature 97.8 F 98.5 F 97.8 F Pulse Rate 59 L 54 L 51 L Respiratory Rate 20 16 16 Blood Pressure 121/74 117/63 98/64 L Pulse Oximetry 98 96 96 11/15/18 04:00 11/15/18 08:00 11/15/18 12:00 Temperature 98.8 F 97.4 F L 98.1 F Pulse Rate 58 L 57 L 58 L Respiratory Rate 16 16 14 Blood Pressure 114/69 113/74 108/70 Pulse Oximetry 96 98 99 Intake & Output 11/14/18 11/15/18 11/15/18 18:59 06:59 18:59 Intake Total 1895 / 1895 1335 / 1335 515 / 515 Balance 1895 / 1895 1335 / 1335 515 / 515 Weight 76.7 kg Intake: IV 1415 / 1415 615 / 615 515 / 515 NS Inj 1,000 ML @ 100 mls/hr IV 700 / 700 .CONT .Q10H [facility] Rx#:[id number] Maxipime Inj 2,000 MG In NS Inj 100 / 100 100 / 100 100 ML @ 200 mls/hr IV.SIG Q8H [facility] Rx#:[id number] Vancomycin Inj 1,500 MG In NS 515 / 515 515 / 515 515 / 515 Inj 500 ML @ 250 mls/hr IV.SIG Q12H [facility] Rx#:[id number] Rocephin Inj 1,000 MG In NS Inj 100 / 100 100 ML @ 200 mls/hr IV.SIG Q12H [facility] Rx#:[id number] Oral 480 / 480 720 / 720 Other: # Voids 2 3 Date of Last Bowel Movement 11/14/18 11/14/18 Narrative: Heart sounds regular rate and rhythm Clear lungs bilaterally, unlabored breathing Appears slightly anxious No lower extremity edema Awake and alert Results - Labs CBC & Chem 7: 11/15/18 09:39 11/16/18 04:55 Laboratory Results - last 24 hr 11/14/18 11/14/18 11/15/18 12:59 12:59 05:09 WBC 6.0 RBC 3.93 L Hgb 11.7 Hct 35.1 MCV 89.3 MCH 29.7 MCHC 33.3 RDW 14.4 Plt Count 99 L MPV 10.6 Prelim Diff (Auto) Slide review pending Neut % (Auto) 68.7 Lymph % (Auto) 17.0 [place] % (Auto) 10.4 H Eos % (Auto) 3.4 Baso % (Auto) 0.5 Neut # (Auto) 4.1 Lymph # (Auto) 1.0 [place] # (Auto) 0.6 Eos # (Auto) 0.2 Baso # (Auto) 0.0 WBC Differential Manual diff final Seg Neuts % (Manual) 60 Band Neuts % (Manual) 24 H Lymphocytes % (Manual) 11 Eosinophils % (Manual) 5 H Abs Neuts (Manual) 5.0 Differential Comment . Platelet Estimate Low L Platelet Morphology Enlarged H Ovalocytes 1+ H ESR Sodium 143 147 H Potassium 3.3 L 3.0 L Chloride 113 H D 118 H Carbon Dioxide 22.5 20.7 L Anion Gap 8 8 BUN 9 9 Creatinine 0.53 0.49 L Estimated GFR Greater than 89 Greater than 89 Random Glucose 91 75 Calcium 7.9 L 6.7 L* D Calcium Adj for Albumin 8.1 L Magnesium 1.7 C-Reactive Protein 3.41 H Albumin 2.3 L D Vancomycin Trough 15.0 H 11/15/18 09:39 WBC 6.2 RBC 3.98 L Hgb 12.0 Hct 35.6 MCV 89.5 MCH 30.1 MCHC 33.6 RDW 14.3 Plt Count 121 L MPV 10.1 Prelim Diff (Auto) Neut % (Auto) Lymph % (Auto) [place] % (Auto) Eos % (Auto) Baso % (Auto) Neut # (Auto) Lymph # (Auto) [place] # (Auto) Eos # (Auto) Baso # (Auto) WBC Differential Seg Neuts % (Manual) Band Neuts % (Manual) Lymphocytes % (Manual) Eosinophils % (Manual) Abs Neuts (Manual) Differential Comment Platelet Estimate Platelet Morphology Ovalocytes ESR 30 H Sodium Potassium Chloride Carbon Dioxide Anion Gap BUN Creatinine Estimated GFR Random Glucose Calcium Calcium Adj for Albumin Magnesium C-Reactive Protein Albumin Vancomycin Trough Microbiology 11/14/18 15:18 Blood - Peripheral Aerobic Blood Culture - Preliminary No growth in 1 day 11/14/18 15:18 Blood - Peripheral Anaerobic Blood Culture - Preliminary No growth in 1 day 11/13/18 08:12 Blood - Peripheral Aerobic Blood Culture - Preliminary gram negative rods 11/13/18 08:12 Blood - Peripheral Anaerobic Blood Culture - Preliminary gram negative rods 11/13/18 08:12 Blood - Peripheral Aerobic Blood Culture - Preliminary gram negative rods 11/13/18 08:12 Blood - Peripheral Anaerobic Blood Culture - Preliminary gram negative rods Staphylococcus coag positive Assessment and Plan - Plan Patient is a pleasant 28-year-old female past medical history of drug abuse who presents with fever shortness of breath admitted for further workup found to have blood cultures positive for gram-negative rods and gram-positive cocci. Suspected endocarditis -Given the severe tricuspid regurgitation and positive blood cultures, CAROLIN will be in order for Saturday per cardiology at the request of infectious disease -Cefepime and vancomycin -We will switch from tramadol to [place] for now -Patient was counseled that we will eventually wean her off of all narcotics prior to discharge and she understands this. Hypokalemia Likely secondary to hypo-mg Replaced and recheck in a.m. Diarhea - ? 2/2 opiates, will see if any relief from [place] tx as above Psychiatry: Drug abuse Counseled patient on importance of substance abuse abstinence. code:fc dvt ppx dispo: med/surg
[2018-11-15] MEDS ORDERED: Potassium Chloride Inj 20 MEQ, Magnesium Sulfate Inj 2 GM in Sod Chloride 0.9% Inj 1,00... IV.SIG ONE (15:00)
[2018-11-16 06:11] LABS: Anion Gap 6 meq/L (5-15); Blood Urea Nitrogen 13 mg/dL (7-18); Calcium 8.1 mg/dL (8.5-10.1); Carbon Dioxide 21.6 meq/L (21.0-32.0); Chloride 113 meq/L (98-107); Glomerular Filtration Rate Greater Than 89 mL/min (>89); Glucose,Random 108 mg/dL (74-106); Potassium 3.9 meq/L (3.5-5.1); Sodium 141 meq/L (136-145)
[2018-11-16] MEDS: Vancomycin Inj 1,500 MG in Sodium Chlor 0.9% Inj 500 ML IV.SIG SCH ×2 (06:45→17:45)
[2018-11-16] MEDS: Enoxaparin Inj 40 MG/0.4 ML Syringe SQ SCH (10:44)
--- NOTE | 2018-11-16 11:05 | P.PNID ---
Subjective Remarks: ID Coverage This is a 28-year-old white female who has history of IV drugs and has been using IV heroin lately. The patient presented to the emergency department yesterday morning with chest pain. It is reported in the emergency room record that she mentioned, "I think I have endocarditis again." She has had a 1-week history of fever, productive cough, nausea, vomiting, diarrhea, and chest pain. She reports having had endocarditis back in [place] in 2009 and she mentioned that they "cleaned out her tricuspid valve". She states that was clean of drugs for 6 years and then started using IV drugs again 6 months ago. She states that she has achiness all over. Blood cultures on admission had gram-negative honey in all 4 bottles. One bottle has gram-positive cocci. Influenza test is negative. The patient had temperature of 103 on admission. Her white count is normal; but the differential reveals 24% bands. She is asking for pain medication. Notes reviewed Temps better Saying pain meds nt enough BC with Serratia and Staph aureus C/O pain supraclavicular area and CR when she breathes For CAROLIN tomorrow Echo with severe TR ESR 30 CRP 3.41 Antibiotics: Cefepime Vancomycin Past Medical History: IV drug use in the form of heroin, hepatitis C, history of endocarditis in 2009, mitral valve repair in 2009. Allergies/Adverse Reactions: Allergies No Known Allergies Allergy (Verified 11/13/18 07:54) Objective Vital Signs 11/15/18 12:00 11/15/18 16:00 11/15/18 20:00 Temperature 98.1 F 98.0 F 98 F Pulse Rate 57 L 57 L 56 L Respiratory Rate 14 17 18 Blood Pressure 108/70 117/80 101/76 Pulse Oximetry 99 99 95 11/15/18 23:55 11/16/18 00:00 11/16/18 04:00 Temperature 98.3 F 97.7 F Pulse Rate 56 L 55 L 55 L Respiratory Rate 18 18 Blood Pressure 118/79 143/78 H Pulse Oximetry 97 97 11/16/18 08:00 Temperature 97.7 F Pulse Rate 56 L Respiratory Rate 12 Blood Pressure 119/76 Pulse Oximetry 100 Intake & Output 11/15/18 11/16/18 11/16/18 18:59 06:59 18:59 Intake Total 2149 / 2149 1315 / 1315 Balance 2149 / 214 1315 / 1315 Weight 78 kg Intake: IV 1629 / 1629 715 / 715 Maxipime Inj 2,000 MG In NS Inj 100 / 100 200 / 200 100 ML @ 200 mls/hr IV.SIG Q8H [facility] Rx#:[id number] KCl Inj 20 MEQ Magnesium 1014 / 1014 Sulfate Inj 2 GM In NS Inj 1, 000 ML @ 500 mls/hr IV.SIG ONCE ONE Rx#:[id number] Vancomycin Inj 1,500 MG In NS 515 / 515 515 / 515 Inj 500 ML @ 250 mls/hr IV.SIG Q12H [facility] Rx#:[id number] Oral 520 / 520 600 / 600 Other: # Voids 3 2 Date of Last Bowel Movement 11/15/18 11/13/18 08:12 Blood - Peripheral Aerobic Blood Culture - Preliminary Serratia marcescens Staphylococcus species 11/13/18 08:12 Blood - Peripheral Anaerobic Blood Culture - Final Staphylococcus aureus Serratia marcescens 11/13/18 08:12 Blood - Peripheral Aerobic Blood Culture - Final Serratia marcescens 11/13/18 08:12 Blood - Peripheral Anaerobic Blood Culture - Preliminary Serratia marcescens Staphylococcus species 11/14/18 15:18 Blood - Peripheral Aerobic Blood Culture - Preliminary No growth in 1 day 11/14/18 15:18 Blood - Peripheral Anaerobic Blood Culture - Preliminary No growth in 1 day 11/13/18 08:57 Nasal Wash Influenza Types A,B Antigen - Final Negative for FLU A and B antigen Infection due to influenza A or B cannot be ruled out since the antigen present in the sample may be below the detection limit of the test. Lab - Hematology Results 11/14/18 11/15/18 12:59 09:39 WBC 6.0 6.2 RBC 3.93 L 3.98 L Hgb 11.7 12.0 Hct 35.1 35.6 MCV 89.3 89.5 MCH 29.7 30.1 MCHC 33.3 33.6 RDW 14.4 14.3 Plt Count 99 L 121 L MPV 10.6 10.1 Prelim Diff (Auto) Slide review pending Neut % (Auto) 68.7 Lymph % (Auto) 17.0 [place] % (Auto) 10.4 H Eos % (Auto) 3.4 Baso % (Auto) 0.5 Neut # (Auto) 4.1 Lymph # (Auto) 1.0 [place] # (Auto) 0.6 Eos # (Auto) 0.2 Baso # (Auto) 0.0 WBC Differential Manual diff final Seg Neuts % (Manual) 60 Band Neuts % (Manual) 24 H Lymphocytes % (Manual) 11 Eosinophils % (Manual) 5 H Abs Neuts (Manual) 5.0 Differential Comment . Platelet Estimate Low L Platelet Morphology Enlarged H Ovalocytes 1+ H ESR 30 H Lab - Chemistry Results 11/14/18 11/15/18 11/16/18 12:59 05:09 04:55 Sodium 143 147 H 141 Potassium 3.3 L 3.0 L 3.9 D Chloride 113 H D 118 H 113 H Carbon Dioxide 22.5 20.7 L 21.6 Anion Gap 8 8 6 BUN 9 9 13 Creatinine 0.53 0.49 L 0.63 Estimated GFR Greater than 89 Greater than 89 Greater than 89 Random Glucose 91 75 108 H Calcium 7.9 L 6.7 L* D 8.1 L D Calcium Adj for Albumin 8.1 L Magnesium 1.7 C-Reactive Protein 3.41 H Albumin 2.3 L D Imaging: ITS Impressions Chest X-Ray 11/13/18 08:05 CONCLUSION: Underinflation with mild opacity at the right lung base representing either atelectasis or airspace consolidation. Otherwise, no acute finding is identified. Physical Exam: GENERAL: This is a well-developed female in no acute distress. She appears chronically ill. SKIN: No rash HEENT: Head is atraumatic. Extraocular movements are grossly intact. Pupils reactive to light. No icterus. Oropharynx without lesions. NECK: Supple without adenopathy. No abnormality seen in R supraclavicular region LUNGS: Decreased clear breath sounds. HEART: Regular S1, S2. Slight systolic murmur at the left sternal border. ABDOMEN: Bowel sounds present. Soft, no tenderness appreciated. EXTREMITIES: No clubbing, cyanosis or edema. Track brizuela are apparent at the right forearm. NEUROLOGIC: No gross focal findings. PSYCHIATRIC: Patient is calm and cooperative. Assessment and Plan - Plan IMPRESSION: Serratia and Staph aureus bacteremia very suspicious for recurrent IE Previous IE and surgery on TV R chest opacity. ?septic emboli Pain in R supraclavicular area, ?clot Fever better Known IVDU RECOMMENDATIONS: US RUE doppler to eval for clot CT chest to evaluate for septic emboli For CAROLIN tomorrow Change Cefepime to Rocephin Continue IV vanco for now until Staph aureus is ID Follow C/S MOnitor progress
[2018-11-16] MEDS ORDERED: Melatonin 5 MG Tablet PO PRN (13:01)
--- NOTE | 2018-11-16 13:07 | P.PNIM ---
Subjective Interval history: Patient says that the [place] is not helping her restlessness. She clarifies that she is actually looking a medication to relieve her restlessness. She is agreeable for me to reduce her [place] dosing and try an actual anxiety medication. Also would like something for sleep. Physical Exam Vital signs: Vital Signs 11/15/18 16:00 11/15/18 20:00 11/15/18 23:55 Temperature 98.0 F 98 F 98.3 F Pulse Rate 57 L 56 L 56 L Respiratory Rate 17 18 18 Blood Pressure 117/80 101/76 118/79 Pulse Oximetry 99 95 97 11/16/18 00:00 11/16/18 04:00 11/16/18 08:00 Temperature 97.7 F 97.7 F Pulse Rate 55 L 55 L 50 L Respiratory Rate 18 12 Blood Pressure 143/78 H 119/76 Pulse Oximetry 97 100 11/16/18 12:00 Temperature 97.9 F Pulse Rate 58 L Respiratory Rate 13 Blood Pressure 107/74 Pulse Oximetry 97 Intake & Output 11/15/18 11/16/18 11/16/18 18:59 06:59 18:59 Intake Total 2149 / 2149 1315 / 1315 100 / 100 Balance 2149 / 2149 1315 / 1315 100 / 100 Weight 78 kg Intake: IV 1629 / 1629 715 / 715 100 / 100 Maxipime Inj 2,000 MG In NS Inj 100 / 100 200 / 200 100 / 100 100 ML @ 200 mls/hr IV.SIG Q8H [facility] Rx#:[id number] KCl Inj 20 MEQ Magnesium 1014 / 1014 Sulfate Inj 2 GM In NS Inj 1, 000 ML @ 500 mls/hr IV.SIG ONCE ONE Rx#:[id number] Vancomycin Inj 1,500 MG In NS 515 / 515 515 / 515 Inj 500 ML @ 250 mls/hr IV.SIG Q12H [facility] Rx#:[id number] Oral 520 / 520 600 / 600 Other: # Voids 3 2 Date of Last Bowel Movement 11/15/18 11/16/18 Narrative: Heart sounds regular rate and rhythm, has a mild 2/6 diastolic murmur Clear lungs bilaterally, unlabored breathing Appears slightly anxious No lower extremity edema Awake and alert Results - Labs CBC & Chem 7: 11/15/18 09:39 11/16/18 04:55 Laboratory Results - last 24 hr 11/16/18 04:55 Sodium 141 Potassium 3.9 D Chloride 113 H Carbon Dioxide 21.6 Anion Gap 6 BUN 13 Creatinine 0.63 Estimated GFR Greater than 89 Random Glucose 108 H Calcium 8.1 L D Microbiology 11/14/18 15:18 Blood - Peripheral Aerobic Blood Culture - Preliminary No growth in 2 days 11/14/18 15:18 Blood - Peripheral Anaerobic Blood Culture - Preliminary No growth in 2 days 11/13/18 08:12 Blood - Peripheral Aerobic Blood Culture - Preliminary Serratia marcescens Staphylococcus species 11/13/18 08:12 Blood - Peripheral Anaerobic Blood Culture - Final Staphylococcus aureus Serratia marcescens 11/13/18 08:12 Blood - Peripheral Aerobic Blood Culture - Final Serratia marcescens 11/13/18 08:12 Blood - Peripheral Anaerobic Blood Culture - Preliminary Serratia marcescens Staphylococcus species Assessment and Plan - Plan Patient is a pleasant 28-year-old female past medical history of drug abuse who presents with fever shortness of breath admitted for further workup found to have blood cultures positive for gram-negative rods and gram-positive cocci. Suspected endocarditis -Given the severe tricuspid regurgitation and positive blood cultures, CAROLIN will be in order for Saturday per cardiology at the request of infectious disease -Cefepime switched over to Rocephin per ID, continue vancomycin, cultures growing MSSA and Serratia -reduce [place] dosing from every 6 to every 12, give one-time dose of oral methadone, and start frequent as needed dosing of hydroxyzine Hypokalemia resolved Drug abuse was already counseled patient on importance of substance abuse abstinence. code:fc dvt ppx dispo: med/surg
[2018-11-16] MEDS ORDERED: Methadone 10 MG Tablet PO ONE (13:30)
--- NOTE | 2018-11-16 13:57 | US ---
EXAM DATE: 11/16/2018 1:45 PM EST AGE/SEX: 28 years / Female INDICATIONS: Right leg pain. CLINICAL DATA: This is the patient's initial encounter. Patient reports that signs and symptoms have been present for 1 day and indicates a pain score of 0/10. MEDICAL/SURGICAL HISTORY: Hepatitis C. Endocarditis. IV drug abuse. . Valve replacement. Open heart surgery. COMPARISON: No prior exams available for comparison. TECHNIQUE: Venous ultrasound of both lower extremities was performed from the inguinal ligament to t he proximal calf. Real-time, color Doppler and spectral tracing, compression and augmentation techni ques were used. FINDINGS: Normal compression of the deep venous system from the inguinal region to the proximal calf . No echogenic clot is seen. Normal response of the venous system to augmentation and respiration. CONCLUSION: 1. The study is negative for lower extremity deep venous thrombosis. Electronically signed by: Milan Rojo MD Board Certified Radiologist 11/16/2018 1:56 PM EST
--- NOTE | 2018-11-16 21:00 | CT ---
EXAM DATE: 11/16/2018 8:24 PM EST AGE/SEX: 28 years / Female INDICATIONS: Chest pain on inspiration; rule out septic emboli. CLINICAL DATA: This is the patient's subsequent encounter. Patient reports that signs and symptoms h ave been present for 3 days and indicates a pain score of 5/10. MEDICAL/SURGICAL HISTORY: Hepatitis C. Endocarditis, IV drug abuse . Heart valve replacement RADIATION DOSE: 9.56 CTDI (mGy) COMPARISON: No prior exams available for comparison. TECHNIQUE: Multiple contiguous axial images were obtained through the chest during bolus infusion of 72 ml Omnipaque 350 (iohexol) nonionic water-soluble contrast as a single exam dose. Images were obtained in suspended respiration using multiple row detector helical technique. Using automated exp osure control and adjustment of the mA and/or kV according to patient size, radiation dose was kept a s low as reasonably achievable to obtain optimal diagnostic quality images. DICOM format image data is available electronically for review and comparison. FINDINGS: Lungs: Mild bilateral lower lobe atelectasis. Lungs otherwise clear. Mediastinum: Diffuse cardiac enlargement with prominent right heart dilatation and marked dilatation of the IVC and hepatic veins. No enlarged lymph nodes. Pleurae: Small right pleural effusion. Axillae: Unremarkable. Bony Structures: Unremarkable. Miscellaneous: Splenomegaly. Mild diffuse heterogeneity of the liver. CONCLUSION: 1. Diffuse cardiac enlargement and marked dilatation of the IVC and hepatic veins suggesting right h eart failure. 2. Lower lobe atelectasis and small right pleural effusion. 3. Splenomegaly. Electronically signed by: Fabricio Lemus MD Board Certified Radiologist 11/16/2018 8:58 PM EST
[2018-11-17] MEDS ORDERED: Pharmacy Ordered Lab Info OTHER ONE (05:45)
[2018-11-17] MEDS: Vancomycin Inj 1,500 MG in Sodium Chlor 0.9% Inj 500 ML IV.SIG SCH (05:48)
[2018-11-17 09:05] VITALS: BP 115/73; RESP 20; TEMP 98; O2SAT 97
--- NOTE | 2018-11-17 10:26 | P.PNIM ---
Subjective Interval history: Nursing denies any acute changes overnight. Patient reports that her restlessness is better, yesterday I had started hydroxyzine and given a one- time dose of methadone and decreased her Claridge dosing. Patient reports that she has had benign mild intermittent lower extremity swelling that is going on for the past couple years that occurs when she ambulates or stands for prolonged periods of time. Physical Exam Vital signs: Vital Signs 11/16/18 12:00 11/16/18 16:00 11/16/18 19:54 Temperature 97.9 F 97.8 F Pulse Rate 58 L 65 54 L Respiratory Rate 13 15 Blood Pressure 107/74 115/68 Pulse Oximetry 97 98 11/16/18 20:00 11/16/18 23:55 11/17/18 00:00 Temperature 98 F 97.9 F Pulse Rate 58 L 55 L 58 L Respiratory Rate 18 17 Blood Pressure 120/81 98/58 L Pulse Oximetry 100 97 11/17/18 03:52 11/17/18 04:00 11/17/18 08:00 Temperature 97.8 F 98.0 F Pulse Rate 53 L 55 L 57 L Respiratory Rate 17 20 Blood Pressure 100/63 115/73 Pulse Oximetry 96 97 Intake & Output 11/16/18 11/17/18 11/17/18 18:59 06:59 18:59 Intake Total 1235 / 1235 1115 / 1115 515 / 515 Balance 1235 / 1235 1115 / 1115 515 / 515 Weight 78.2 kg Intake: IV 715 / 715 515 / 515 515 / 515 Maxipime Inj 2,000 MG In NS Inj 100 / 100 100 ML @ 200 mls/hr IV.SIG Q8H [facility] Rx#:[id number] Vancomycin Inj 1,500 MG In NS 515 / 515 515 / 515 515 / 515 Inj 500 ML @ 250 mls/hr IV.SIG Q12H [facility] Rx#:[id number] Rocephin Inj 2,000 MG In NS Inj 100 / 100 100 ML @ 200 mls/hr IV.SIG Q24H [facility] Rx#:[id number] Oral 520 / 520 600 / 600 Other: # Voids 3 1 Date of Last Bowel Movement 11/16/18 11/16/18 Narrative: Heart sounds regular rate and rhythm Clear lungs bilaterally, unlabored breathing Appears slightly anxious No lower extremity edema Awake and alert Results - Labs CBC & Chem 7: 11/15/18 09:39 11/16/18 04:55 Laboratory Results - last 24 hr 11/17/18 05:00 Vancomycin Trough 21.7 H Microbiology 11/13/18 08:12 Blood - Peripheral Aerobic Blood Culture - Final Serratia marcescens Staphylococcus aureus 11/13/18 08:12 Blood - Peripheral Anaerobic Blood Culture - Final Staphylococcus aureus Serratia marcescens 11/13/18 08:12 Blood - Peripheral Aerobic Blood Culture - Final Serratia marcescens 11/13/18 08:12 Blood - Peripheral Anaerobic Blood Culture - Final Serratia marcescens Staphylococcus aureus 11/14/18 15:18 Blood - Peripheral Aerobic Blood Culture - Preliminary No growth in 2 days 11/14/18 15:18 Blood - Peripheral Anaerobic Blood Culture - Preliminary No growth in 2 days - Imaging Impressions Chest CT 11/16/18 00:00 CONCLUSION: 1. Diffuse cardiac enlargement and marked dilatation of the IVC and hepatic veins suggesting right heart failure. 2. Lower lobe atelectasis and small right pleural effusion. 3. Splenomegaly. Venous Doppler Study 11/16/18 00:00 CONCLUSION: 1. The study is negative for lower extremity deep venous thrombosis. Assessment and Plan - Plan Patient is a pleasant 28-year-old female past medical history of drug abuse who presents with fever shortness of breath admitted for further workup found to have blood cultures positive MSSA and Serratia. Had hyperkalemia which resolved after appropriate supplementation. Suspected endocarditis -Given the severe tricuspid regurgitation and positive blood cultures, CAROLIN pending for today CT chest negative for any findings for septic emboli, and his Doppler of left upper extremities also negative for any clot -Vancomycin and Rocephin per ID for MSSA and Serratia -Doing better with reduced Claridge dosing and frequent hydroxyzine dosing -Patient was counseled that we will eventually wean her off of all narcotics prior to discharge and she understands this. Diarhea - ? 2/2 opiates, will see if any relief from Claridge tx as above Psychiatry: Drug abuse Counseled patient on importance of substance abuse abstinence. code:anette dvt ppx dispo: med/surg
[2018-11-17] MEDS: Enoxaparin Inj 40 MG/0.4 ML Syringe SQ SCH (11:12)
[2018-11-17 12:47] VITALS: PULSE 58
--- NOTE | 2018-11-17 12:57 | P.PNCA ---
Subjective Interval history: Denies CP, SOB, dizziness. Medications and Allergies Active Medications: Active Medications Acetaminophen (Tylenol) 650 mg PO Q4H PRN PRN Reason: Headache, fever Hydrocodone Bitart/Acetaminophen ([place] 5/325) 1 tab PO Q12H PRN PRN Reason: pain 1-10 Last Admin: 11/17/18 10:12 Dose: 1 tab Al Hydroxide/Mg Hydroxide (Milk Of Magnesia Liq) 30 ml PO Q12H PRN PRN Reason: Mild Constipation Bisacodyl (Dulcolax Supp) 10 mg RECTAL DAILY PRN PRN Reason: SEVERE CONSITIPATION Enoxaparin Sodium (Lovenox Inj) 40 mg SQ Q24H [facility] [place] Last Admin: 11/17/18 11:12 Dose: Not Given Hydroxyzine HCl (Atarax) 50 mg PO Q6H PRN PRN Reason: anxiety/restlessness Last Admin: 11/17/18 05:49 Dose: 50 mg Ceftriaxone Sodium 2,000 mg/ (Sodium Chloride) 100 mls @ 200 mls/hr IV.SIG Q24H [facility] [place] Last Admin: 11/17/18 11:37 Dose: 200 mls/hr Vancomycin HCl 1,250 mg/ (Sodium Chloride) 262.5 mls @ 250 mls/hr IV.SIG Q12H [facility] [place] Lactulose (Lactulose Liq) 30 ml PO DAILY PRN PRN Reason: SEVERE CONSITIPATION Melatonin (Melatonin) 5 mg PO HS PRN PRN Reason: INSOMNIA Last Admin: 11/16/18 21:41 Dose: 5 mg Miscellaneous Information ([facility] Ordered Lab Info) 0 each OTHER ONCE ONE Stop: 11/19/18 05:46 Ondansetron HCl (Zofran Inj) 4 mg IV.PUSH Q6H PRN PRN Reason: NAUSEA OR VOMITING Last Admin: 11/17/18 05:57 Dose: 4 mg Pharmacy Profile Note (Vancomycin Consult Pharmacy) 1 each OTHER UNSCH PRN PRN Reason: Pharmacy to dose Potassium Chloride (Klor-Con 10) 30 meq PO DAILY [facility] [place] Last Admin: 11/17/18 08:10 Dose: 30 meq Sennosides (Senokot) 17.2 mg PO Q12H PRN PRN Reason: Moderate Constipation Sodium Chloride (Ns Flush) 2 ml IV.FLUSH BID [facility] [place] Last Admin: 11/17/18 08:10 Dose: Not Given Sodium Chloride (Ns Flush) 2 ml IV.FLUSH UNSCH PRN PRN Reason: FLUSH AFTER USING IV ACCESS Allergies Allergy/AdvReac Type Severity Reaction Status Date / Time No Known Allergies Allergy Verified 11/13/18 07:54 Home Medications Medication Instructions Recorded Confirmed Type No Known Home Medications 11/13/18 11/13/18 History Physical Exam Vital signs: Vital Signs 11/16/18 16:00 11/16/18 19:54 11/16/18 20:00 Temperature 97.8 F 98 F Pulse Rate 65 54 L 58 L Respiratory Rate 15 18 Blood Pressure 115/68 120/81 Pulse Oximetry 98 100 11/16/18 23:55 11/17/18 00:00 11/17/18 03:52 Temperature 97.9 F Pulse Rate 55 L 58 L 53 L Respiratory Rate 17 Blood Pressure 98/58 L Pulse Oximetry 97 11/17/18 04:00 11/17/18 08:00 11/17/18 12:00 Temperature 97.8 F 98.0 F Pulse Rate 55 L 57 L 58 L Respiratory Rate 17 20 Blood Pressure 100/63 115/73 Pulse Oximetry 96 97 Intake & Output 11/16/18 11/17/18 11/17/18 18:59 06:59 18:59 Intake Total 1235 / 1235 1115 / 1115 515 / 515 Balance 1235 / 1235 1115 / 1115 515 / 515 Weight 78.2 kg Intake: IV 715 / 715 515 / 515 515 / 515 Maxipime Inj 2,000 MG In NS Inj 100 / 100 100 ML @ 200 mls/hr IV.SIG Q8H [facility] Rx#:[id number] Vancomycin Inj 1,500 MG In NS 515 / 515 515 / 515 515 / 515 Inj 500 ML @ 250 mls/hr IV.SIG Q12H [facility] Rx#:[id number] Rocephin Inj 2,000 MG In NS Inj 100 / 100 100 ML @ 200 mls/hr IV.SIG Q24H [facility] Rx#:[id number] Oral 520 / 520 600 / 600 Other: # Voids 3 1 Date of Last Bowel Movement 11/16/18 11/16/18 - Constitutional no acute distress - Routine Neck Exam Present: JVD - Routine Respiratory Exam Present: CTA bilaterally - Routine Cardiovascular Exam Present: RRR, S1, S2, murmur. Absent: gallop Comments: I/ systolic murmur along left sternal border. - Routine Abdominal Exam Present: soft, normoactive bowel sounds. Absent: tenderness, organomegaly - Routine Extremities Exam Absent: cyanosis, clubbing, edema Results 11/15/18 09:39 11/16/18 04:55 Comprehensive Metabolic Panel 11/16/18 Range/Units 04:55 Sodium 141 (136-145) meq/L Potassium 3.9 D (3.5-5.1) meq/L Chloride 113 H (98-107) meq/L Carbon Dioxide 21.6 (21.0-32.0) meq/L BUN 13 (7-18) mg/dL Creatinine 0.63 (0.50-1.00) mg/dL Calcium 8.1 L D (8.5-10.1) mg/dL Intake and Output 11/16/18 11/17/18 11/17/18 22:59 06:59 14:59 Intake Total 1035 / 1035 600 / 600 515 / 515 Balance 1035 / 1035 600 / 600 515 / 515 Intake: IV 515 / 515 515 / 515 Vancomycin Inj 1,500 MG In NS 515 / 515 515 / 515 Inj 500 ML @ 250 mls/hr IV.SIG Q12H [facility] Rx#:[id number] Oral 520 / 520 600 / 600 Other: # Voids 3 1 Date of Last Bowel Movement 11/16/18 Weight 78.2 kg - Imaging and Cardiology Imaging: Impressions Chest CT 11/16/18 00:00 CONCLUSION: 1. Diffuse cardiac enlargement and marked dilatation of the IVC and hepatic veins suggesting right heart failure. 2. Lower lobe atelectasis and small right pleural effusion. 3. Splenomegaly. Venous Doppler Study 11/16/18 00:00 CONCLUSION: 1. The study is negative for lower extremity deep venous thrombosis. Assessment and Plan - Assessment (1) Sepsis Code(s): A41.9 - Sepsis, unspecified organism Status: Acute Plan: Cardiac status stable. No valvular vegetation evident on CAROLIN today. (2) History of tricuspid valve replacement Code(s): Z95.2 - Presence of prosthetic heart valve Status: Chronic Plan: Moderate to severe tricuspid regurgitations by CAROLIN today associated with marked right atrial enlargement, moderate RV enlargement with mildly reduced RV systolic function. No significant problems with right heart failure. Recommend conservative management of her valvular disease. - Plan Code Status: full
--- NOTE | 2018-11-17 13:07 | ECHRPT ---
Indication: ENDOCARDITIS CONCLUSIONS Normal left ventricular size and wall thickness. The left ventricular systolic function is normal wi th an estimated ejection fraction in the range of 60-65%. Normal left ventricular wall motion. The right ventricle is moderately dilated. The right ventricular systoilc function is mild to moder ately decreased. The patient is reportedly status post tricuspid valve surgery, possibly replacement. Structurally normal tricuspid valve. There is moderate to severe tricuspid valve regurgitation. No evidence for vegeta tion. BP: / HR: Rhythm: Technical Quality: Medications Complications Proc. Components FINDINGS LEFT VENTRICLE Normal left ventricular size and wall thickness. The left ventricular systolic function is normal wi th an estimated ejection fraction in the range of 60-65%. Normal left ventricular wall motion. RIGHT VENTRICLE The right ventricle is moderately dilated. The right ventricular systoilc function is mild to moderately decreased. LEFT ATRIUM The left atrial size is normal. RIGHT ATRIUM The right atrial size is severely dilated. ATRIAL SEPTUM Normal atrial septal thickness without atrial level shunting by limited color doppler interrogation. AORTA The aortic root and proximal ascending aorta are normal in size on limited imaging. MITRAL VALVE Structurally normal mitral valve. No mitral valve stenosis or regurgitation. AORTIC VALVE Trileaflet aortic valve. No aortic valve stenosis or regurgitation. TRICUSPID VALVE The patient is reportedly status post tricuspid valve surgery, possibly replacement. Structurally normal tricuspid valve. There is moderate to severe tricuspid valve regurgitation. No evidence for vegeta tion. VESSELS The inferior vena cava is normal in size. PULMONARY VALVE No pulmonary valve regurgitation or stenosis. No vegetation. PERICADIUM No pericardial effusion. Lee Bustamante MD (Electronically Signed) Final Date:17 November 2018 13:05
[2018-11-17] MEDS ORDERED: Vancomycin Inj 1,250 MG in Sodium Chlor 0.9% Inj 250 ML IV.SIG SCH (18:00)
[2018-11-19] MEDS ORDERED: Pharmacy Ordered Lab Info OTHER ONE (05:45)
== END 2018-11-17 16:06 | disposition left against medical advice (07) | DRG 872 ==
LOC: NEPE 07:47 → NEDA 10:06 → N04 14:53
PROVIDERS: ADMIT Hospitalist; ATTEND Hospitalist
CPT/HCPCS: 71010; 71045; 71260; 76937; 80048; 80053; 80202; 81001; 82040; 83520; 83605; 83690; 83735; 83880; 84100; 84484; 84702; 84703; 85025; 85027; 85610; 85651; 85652; 85730; 86140; 86403; 87040; 87077; 87149; 87186; 87205; 87275; 87276; 87804; 90765; 90768; 90775; 93005; 93306; 93312; 93320; 93325; 93971; 96365; 96368; 96375; 99285; J0692; J0696; J2250; J2270; J2405; J2543; J3370; J3475; J3480; J7030; J7040; J7050; Q9967